=== PATIENT | female | born 1975 | race African-American/Black ===

== ENCOUNTER 2016-03-20 12:08 | Emergency (ER) | payer BC, OTHER ==
[2016-03-20 12:51] VITALS: BP 132/84; PULSE 65; TEMP 98.3; BMI 30.9
[2016-03-20] MEDS ORDERED: FAMOTIDINE 20 MG/50 ML IVPB 50 ML IVPB ONE ×2 (13:15→13:46)
[2016-03-20] MEDS ORDERED: SODIUM CHLORIDE 1,000 ML IV STA (13:15)
[2016-03-20] MEDS ORDERED: ACETAMINOPHEN 325 MG TABLET (FP) PO ONE (13:15)
[2016-03-20] MEDS ORDERED: MAG HYDROX/AL HYDROX/SIMETH 30 ML UNIT-DOSE CUP PO ONE (13:15)
[2016-03-20] MEDS ORDERED: ONDANSETRON 4 MG/2 ML VIAL IVPB ONE (13:15)
--- NOTE | 2016-03-20 13:21 | PDOC ---
History of Present Illness - General Chief Complaint: Pain, Acute Stated Complaint: LOWER ABDOMINAL PAIN Time Seen by Provider: 03/20/16 12:45 History Source: Patient Exam Limitations: No Limitations - History of Present Illness Initial Comments: 03/20/16 13:18 40-year-old female with no past medical history presents to the emergency department with right-sided tension headache, diarrhea, vomiting and left upper quadrant pain since yesterday night. Patient denies recent traveling or sick contacts. Reports some chills but denies fevers. Today, had 3 episodes of diarrhea multiple episodes of vomiting. Reports decreased appetite. Denies dysuria or lower abdominal pain (despite what was written in triage). Past History - Past Medical History Allergies/Adverse Reactions: Allergies Allergy/AdvReac Type Severity Reaction Status Date / Time No Known Allergies Allergy Verified 12/16/14 14:57 Home Medications: Ambulatory Orders Ibuprofen [Motrin -] 600 mg PO TID PRN #21 tablet 12/16/14 Acetaminophen [Tylenol .Regular Strength -] 650 mg PO Q6H PRN #0 tablet Cyanocobalamin [Vitamin B12 -] 100 mcg PO DAILY tablet 09/13/15 Levofloxacin [Levaquin -] 500 mg PO DAILY #10 tablet 09/13/15 Oxycodone HCl/Acetaminophen [Percocet 5-325 mg Tablet] 1 tab PO Q6H PRN #20 tablet MDD 3 tbs 09/13/15 Polyethylene Glycol 3350 [Miralax 119 gm Btl -] 17 gm PO DAILY PRN #0 bottle Acetaminophen [Tylenol] 650 mg PO Q4H PRN #20 tablet 03/20/16 Famotidine [Pepcid] 20 mg PO BID PRN #14 tablet 03/20/16 Mag Hydrox/Al Hydrox/Simeth [Mylanta Suspension -] 30 ml PO Q6H PRN #1 bottle Ondansetron HCl [Zofran] 4 mg PO Q6H PRN #15 tablet 03/20/16 - Immunization History Immunization Up to Date: Yes - Psycho/Social/Smoking Cessation Hx Anxiety: No Suicidal Ideation: No Smoking Status: No Smoking History: Never smoked Have you smoked in the past 12 months: No Number of Cigarettes Smoked Daily: 0 Hx Alcohol Use: Yes (OCCAISIONAL) Drug/Substance Use Hx: No Substance Use Type: None Review of Systems - Review of Systems Able to Perform ROS?: Yes Comments:: 03/20/16 13:19 GENERAL/CONSTITUTIONAL: No fever, weakness. HEAD, EYES, EARS, NOSE AND THROAT: No change in vision. No ear pain or discharge. No sore throat. CARDIOVASCULAR: No chest pain or shortness of breath. RESPIRATORY: No cough, wheezing, or hemoptysis. GASTROINTESTINAL: Positive abdominal pain, nausea, vomiting, diarrhea, or decreased PO intolerance. GENITOURINARY: No dysuria, frequency, or change in urination. MUSCULOSKELETAL: No joint or muscle swelling or pain. No neck or back pain. SKIN: No rash NEUROLOGIC: No headache, vertigo, loss of consciousness, or change in strength/ sensation. ENDOCRINE: No increased thirst. No abnormal weight change. HEMATOLOGIC/LYMPHATIC: No anemia, easy bleeding, or history of blood clots. ALLERGIC/IMMUNOLOGIC: No hives or skin allergy. *Physical Exam - Vital Signs Last Vital Signs Temp Pulse Resp BP Pulse Ox 98.3 F 65 16 132/84 100 03/20/16 12:43 03/20/16 12:43 03/20/16 12:43 03/20/16 12:43 03/20/16 12:43 - Physical Exam Comments: 03/20/16 13:19 GENERAL: Awake, alert, and fully oriented, in no acute distress. Dry mucous membranes HEAD: No signs of trauma EYES: PERRLA, EOMI, sclera anicteric, conjunctiva clear ENT: Auricles normal inspection, hearing grossly normal, nares patent, oropharynx clear without exudates. NECK: Normal ROM, supple, no lymphadenopathy, JVD, or masses LUNGS: Breath sounds equal, clear to auscultation bilaterally. No wheezes, and no crackles HEART: Regular rate and rhythm, normal S1 and S2, no murmurs, rubs or gallops ABDOMEN: TTP LUQ. De [place] negative. Soft, normoactive bowel sounds. No guarding , no rebound. No masses EXTREMITIES: Normal range of motion, no edema. No clubbing or cyanosis. No cords, erythema, or tenderness NEUROLOGICAL: Cranial nerves II through XII grossly intact. Normal speech, normal gait SKIN: Warm, Dry, normal turgor, no rashes or lesions noted. ED Treatment Course - LABORATORY CBC & Chemistry Diagram: 03/20/16 13:47 03/20/16 13:47 Medical Decision Making - Medical Decision Making 03/20/16 13:20 A portion of this note was documented by scribe services under my direction. I have reviewed the details of the note, within reason, and agree with the documentation with the following case summary and management plan written by me. Patient treated in the ED. Nursing notes are reviewed and incorporated into the medical decision-making. Vital signs reviewed. Peripheral IV access obtained by the nurse, laboratory studies are drawn and sent, reviewed and interpreted by myself. Vital Signs Temp Pulse Resp BP Pulse Ox 98.3 F 65 16 132/84 100 03/20/16 12:43 03/20/16 12:43 03/20/16 12:43 03/20/16 12:43 03/20/16 12:43 I suspect that the patient has gastroenteritis. We'll obtain labs, give IV fluids and treat symptoms and reassess. 03/20/16 16:38 CBC, BMP 03/20/16 13:47 03/20/16 13:47 CMP Sodium 136 mmol/L (136-145) 03/20/16 13:47 Potassium 3.8 mmol/L (3.5-5.1) 03/20/16 13:47 Chloride 103 mmol/L (98-107) 03/20/16 13:47 Carbon Dioxide 27 mmol/L (22-28) 03/20/16 13:47 Anion Gap 6 (8-16) L 03/20/16 13:47 BUN 11 mg/dl (7-18) D 03/20/16 13:47 Creatinine 0.5 mg/dl (0.6-1.3) L 03/20/16 13:47 Creat Clearance w eGFR > 60 (>60) 03/20/16 13:47 Random Glucose 106 mg/dl (74-106) 03/20/16 13:47 Calcium 8.9 mg/dl (8.4-10.2) 03/20/16 13:47 Total Bilirubin 0.7 mg/dl (0.2-1.0) 03/20/16 13:47 AST 30 U/L (10-42) D 03/20/16 13:47 ALT 14 U/L (10-40) D 03/20/16 13:47 Alkaline Phosphatase 47 U/L (32-92) 03/20/16 13:47 Total Protein 7.3 g/dl (6.4-8.3) 03/20/16 13:47 Albumin 4.4 g/dl (3.5-5.0) 03/20/16 13:47 Lipase 30 U/L (22-51) 03/20/16 13:47 Urine Test Results Urine Color Yellow 03/20/16 16:05 Urine Appearance Clear 03/20/16 16:05 Urine pH 6.5 (4.5-8) 03/20/16 16:05 Ur Specific [place] 1.025 (1.005-1.025) 03/20/16 16:05 Urine Protein Trace (NEGATIVE) 03/20/16 16:05 Urine Glucose (UA) Negative (NEGATIVE) 03/20/16 16:05 Urine Ketones Negative (NEGATIVE) 03/20/16 16:05 Urine Blood 2+ (NEGATIVE) H 03/20/16 16:05 Urine Nitrite Negative (NEGATIVE) 03/20/16 16:05 Urine Bilirubin Negative (NEGATIVE) 03/20/16 16:05 Ur Leukocyte Esterase Negative (NEGATIVE) 03/20/16 16:05 03/20/16 16:40 Pt feels remarkedly better Likely viral gastroenteritis. Will discharge with supportive care and encourage PO intake. I discussed the physical exam findings, ancillary test results and final diagnoses with the patient. I answered all of the patient's questions. The patient was satisfied with the care received and felt comfortable with the discharge plan and treatment plan. The patient will call their primary care physician within 24 hours to arrange follow-up and will return to the Emergency Department with any new, persistant or worsening symptoms. *DC/Admit/Observation/Transfer Diagnosis at time of Disposition: Gastroenteritis - Discharge Dispostion Disposition: HOME Condition at time of disposition: Good Admit: No - Prescriptions Prescriptions: Mag Hydrox/Al Hydrox/Simeth [Mylanta Suspension -] 30 ml PO Q6H PRN #1 bottle PRN Reason: Abdominal Pain Famotidine [Pepcid] 20 mg PO BID PRN #14 tablet PRN Reason: Abdominal Pain Acetaminophen [Tylenol] 650 mg PO Q4H PRN #20 tablet PRN Reason: Fever/Pain Ondansetron HCl [Zofran] 4 mg PO Q6H PRN #15 tablet PRN Reason: Nausea - Referrals Referrals: Cintia Matute [Primary Care Provider] - - Patient Instructions Printed Discharge Instructions: DI for Viral Gastroenteritis -- Adult Additional Instructions: Please drink plenty of fluids and rest. Take the medications as prescribed as needed for symptom control. It may take several days before the symptoms improve. Follow up with your primary care physician.
[2016-03-20] MEDS ORDERED: ONDANSETRON 4 MG/2 ML VIAL ONE (13:46)
[2016-03-20] MEDS ORDERED: MAG HYDROX/AL HYDROX/SIMETH 30 ML UNIT-DOSE CUP ONE (13:46)
[2016-03-20] MEDS ORDERED: ACETAMINOPHEN 325 MG TABLET (FP) ONE (13:46)
[2016-03-20 15:13] LABS: BASOPHIL 1.4 % (0-2.0); EOSINOPHIL 0.1 % (0-4.5); MCH 29.1 pg (25.7-33.7); MCHC 32.5 g/dl (32.0-36.0); MEAN CELL VOLUME 89.6 fl (80-96); MEAN PLT VOLUME 8.4 fl (7.5-11.1); NEUTROPHILS 88.9 % (42.8-82.8); PLATELET COUNT 249 K/MM3 (134-434); RDW 12.8 % (11.6-15.6); WHITE BLOOD COUNT 9.4 K/mm3 (4.0-10.0)
[2016-03-20 15:37] LABS: ALBUMIN 4.4 g/dl (3.5-5.0); ALK PHOS 47 U/L (32-92); ANION GAP 6 (8-16); BILIRUBIN,TOTAL 0.7 mg/dl (0.2-1.0); CALCIUM 8.9 mg/dl (8.4-10.2); CO2 27 mmol/L (22-28); CREATININE 0.5 mg/dl (0.6-1.3); GLUCOSE,RANDOM 106 mg/dl (74-106); SGOT/AST 30 U/L (10-42); SGPT/ALT 14 U/L (10-40); TOT PROT 7.3 g/dl (6.4-8.3)
[2016-03-20 16:19] LABS: PH,URINE 6.5 (4.5-8); URINE APPEARANCE Clear; URINE BILIRUBIN Negative (NEGATIVE); URINE GLUCOSE (UA) Negative (NEGATIVE); URINE KETONE Negative (NEGATIVE); URINE LEUK ESTERASE Negative (NEGATIVE); URINE NITRITE Negative (NEGATIVE); URINE PROTEIN Trace (NEGATIVE); URINE UROBILINOGEN 0.2 E.U/dl (0.2-1.0)
[2016-03-20 16:27] LABS: URINE BLOOD 2+ (NEGATIVE); URINE COLOR YELLOW
[2016-03-20 17:18] LABS: URINE BACTERIA RARE /hpf (NEGATIVE); URINE RBC 0-3 /hpf (0-3); URINE WBC NONE SEEN (3-5)
== END 2016-03-20 16:59 | disposition home or self-care (01) ==
LOC: FER 12:08
PROC: 3E033GC Introduction of Other Therapeutic Substance into Peripheral Vein, Percutaneous Approach (ICD-10-PCS; principal; 2016-03-20)
PROC: 3E0337Z Introduction of Electrolytic and Water Balance Substance into Peripheral Vein, Percutaneous Approach (ICD-10-PCS; 2016-03-20)
DX: K52.9 Noninfective gastroenteritis and colitis, unspecified (principal)
CPT/HCPCS: 36415; 80053; 81003; 81015; 83690; 84703; 85025; 87086; 99283-25

== ENCOUNTER 2016-03-31 11:10 | Emergency (ER) | payer BC, OTHER ==
[2016-03-31 11:39] VITALS: BP 121/54; PULSE 72; TEMP 98.1; BMI 32.5
[2016-03-31] MEDS ORDERED: AMOX TR/POT CLAV 500MG/125MG TABLETS (FP) PO ONE (13:17)
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
[2016-03-31] MEDS ORDERED: AMOX TR/POT CLAV 500MG/125MG TABLETS (FP) ONE (13:30)
[2016-03-31 15:47] LABS: HIV 1 & 2 AB NEGATIVE; HIV 1 AGp24 NEGATIVE
== END 2016-03-31 13:36 | disposition home or self-care (01) ==
LOC: FER 11:10
DX: S61.551A Open bite of right wrist, initial encounter (principal); S05.12XA Contusion of eyeball and orbital tissues, left eye, initial encounter; Y04.1XXA Assault by human bite, initial encounter; Y93.89 Activity, other specified; Y92.159 Unspecified place in reform school as the place of occurrence of the external cause; Y99.0 Civilian activity done for income or pay
CPT/HCPCS: 36415; 87389; 99282-25

== ENCOUNTER 2016-09-28 23:43 | Emergency (ER) | payer OTHER ==
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
[2016-09-28 23:58] VITALS: BP 118/68; PULSE 93; TEMP 98.5; BMI 31.6
== END 2016-09-29 01:55 | disposition home or self-care (01) ==
LOC: FER 23:43
DX: T14.8 Other injury of unspecified body region (principal); Y04.2XXA Assault by strike against or bumped into by another person, initial encounter; Y93.89 Activity, other specified; Y92.159 Unspecified place in reform school as the place of occurrence of the external cause; Y99.0 Civilian activity done for income or pay
CPT/HCPCS: 73610-TC-RT; 73630-TC-RT; 84703; 99282-25

== ENCOUNTER 2018-07-08 15:22 | Emergency (ER) | payer BC ==
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
[2018-07-08 17:31] VITALS: BP 121/80; PULSE 70; TEMP 98.3
== END 2018-07-08 17:10 | disposition home or self-care (01) ==
LOC: FER 15:22
DX: T22.412A Corrosion of unspecified degree of left forearm, initial encounter (principal); T65.891A Toxic effect of other specified substances, accidental (unintentional), initial encounter; Y92.002 Bathroom of unspecified non-institutional (private) residence as the place of occurrence of the external cause
CPT/HCPCS: 99283-25

== ENCOUNTER 2020-03-12 08:56 | Emergency (ER) | payer BC ==
[2020-03-12] MEDS ORDERED: SODIUM CHLORIDE 1,000 ML IV STA (09:03)
[2020-03-12] MEDS ORDERED: ACETAMINOPHEN 1000 MG/100 ML VIAL (NON FORMULARY) IVPB ONE (09:03)
[2020-03-12] MEDS ORDERED: ONDANSETRON 4 MG/2 ML VIAL IVPB ONE (09:03)
[2020-03-12] MEDS ORDERED: PANTOPRAZOLE SODIUM 40 MG in SODIUM CHLORIDE 100 ML IVPB ONE (09:11)
[2020-03-12 09:12] VITALS: BP 141/88; PULSE 67; TEMP 97.9; BMI 31.4
[2020-03-12] MEDS ORDERED: ACETAMINOPHEN INJECTION 100 ML IVPB ONE (09:25)
[2020-03-12] MEDS ORDERED: ONDANSETRON 4 MG/2 ML VIAL ONE (09:25)
[2020-03-12] MEDS ORDERED: PANTOPRAZOLE SODIUM 40 MG VIAL ONE (09:25)
[2020-03-12 09:49] LABS: HCG,QUALITATIVE URINE Negative
[2020-03-12 09:49] LABS: RDW 13.3 % (11.6-15.6); WHITE BLOOD COUNT 8.6 K/mm3 (4.0-10.8)
[2020-03-12 09:53] LABS: BASO % 3.1 % (0-2.0); EOS % 0.6 % (0-4.5); MCH 31.2 pg (25.7-33.7); MCHC 32.5 g/dl (32.0-36.0); MEAN CELL VOLUME 95.9 fl (80-96); MEAN PLT VOLUME 8.4 fl (7.5-11.1); MONO % 7.2 % (3.8-10.2); NEUT % 80.1 % (42.8-82.8); PLATELET COUNT 307 K/MM3 (134-434); RBC 3.85 M/mm3 (3.60-5.2)
[2020-03-12 09:57] LABS: EPITHELIAL CELLS MODERATE /hpf
[2020-03-12 09:57] LABS: ALBUMIN 4.1 g/dl (3.4-5.0); BILIRUBIN,TOTAL 0.3 mg/dl (0.2-1); CALCIUM 9.1 mg/dl (8.5-10); CREATININE 0.6 mg/dl (0.55-1.3); POTASSIUM 3.6 mmol/L (3.5-5.1)
== END 2020-03-12 11:49 | disposition home or self-care (01) ==
LOC: FER 08:56
PROC: 3E0333Z Introduction of Anti-inflammatory into Peripheral Vein, Percutaneous Approach (ICD-10-PCS; principal; 2020-03-12)
PROC: 3E033GC Introduction of Other Therapeutic Substance into Peripheral Vein, Percutaneous Approach (ICD-10-PCS; 2020-03-12)
PROC: 3E033GC Introduction of Other Therapeutic Substance into Peripheral Vein, Percutaneous Approach (ICD-10-PCS; 2020-03-12)
PROC: 3E0337Z Introduction of Electrolytic and Water Balance Substance into Peripheral Vein, Percutaneous Approach (ICD-10-PCS; 2020-03-12)
DX: K52.9 Noninfective gastroenteritis and colitis, unspecified (principal); R10.9 Unspecified abdominal pain; R11.2 Nausea with vomiting, unspecified
CPT/HCPCS: 36415; 74177-TC; 80053; 81003; 81015; 83690; 84703; 85025; 87086; 99285-25; J0131

== ENCOUNTER 2020-07-31 09:51 | Emergency (ER) | payer BC ==
[2020-07-31 10:15] VITALS: BP 116/74; PULSE 71; TEMP 99.3; BMI 30.9
== END 2020-07-31 10:15 | disposition home or self-care (01) ==
LOC: FER 09:51
DX: R60.0 Localized edema (principal)
CPT/HCPCS: 99281-25

== ENCOUNTER 2020-12-22 10:52 | Emergency (ER) | payer BC ==
[2020-12-22 11:11] VITALS: BP 115/81; PULSE 78; TEMP 99.9; BMI 30.9
[2020-12-22] MEDS ORDERED: IBUPROFEN 600 MG TABLET (FP) PO ONE ×2 (11:27→11:39)
[2020-12-22] MEDS ORDERED: SULFAMETHOXAZOLE/TRIMETHOPRIM 800MG/160MG D.S. TABLET PO ONE (11:47)
[2020-12-22] MEDS ORDERED: SULFAMETHOXAZOLE/TRIMETHOPRIM 800MG/160MG D.S. TABLET ONE (11:54)
== END 2020-12-22 12:00 | disposition home or self-care (01) ==
LOC: FER 10:52
PROC: 0H9KXZZ Drainage of Right Lower Leg Skin, External Approach (ICD-10-PCS; principal; 2020-12-22)
DX: L02.415 Cutaneous abscess of right lower limb (principal)
CPT/HCPCS: 99283-25

== ENCOUNTER 2021-06-13 15:30 | Emergency (ER) | payer BC ==
[2021-06-13 15:50] VITALS: BP 121/93; PULSE 71; TEMP 97.8; BMI 30.9
[2021-06-13] MEDS ORDERED: LIDOCAINE HCL 2% JELLY (5 ML/TUBE) ONE (16:22)
[2021-06-13] MEDS ORDERED: ACETAMINOPHEN 325 MG TABLET (FP) ONE (16:23)
[2021-06-13] MEDS ORDERED: ACETAMINOPHEN 325 MG TABLET (FP) PO ONE (16:27)
[2021-06-13] MEDS ORDERED: LIDOCAINE HCL 2% JELLY (5 ML/TUBE) TP ONE (16:27)
== END 2021-06-13 16:30 | disposition home or self-care (01) ==
LOC: FER 15:30
DX: R22.31 Localized swelling, mass and lump, right upper limb (principal)
CPT/HCPCS: 99283-25

== ENCOUNTER 2021-11-23 21:02 | Inpatient (IN) | payer BC ==
[2021-11-23 21:08] VITALS: BMI 30.7
[2021-11-23] MEDS ORDERED: ACETAMINOPHEN 1000 MG/100 ML BAG IVPB ONE (21:57)
[2021-11-23] MEDS ORDERED: SODIUM CHLORIDE 1,000 ML IV STA (21:57)
[2021-11-23] MEDS ORDERED: ACETAMINOPHEN INJECTION 100 ML IVPB ONE (22:05)
[2021-11-23 23:15] LABS: VENOUS BASE EXCESS 0.3 mmol/L (-2-2); VENOUS O2 SATURATION 91.8 % (70-80); VENOUS PCO2 37.3 mmHg (38-52); VENOUS PH 7.433 (7.310-7.410)
[2021-11-23 23:17] LABS: BASO % 0.4 % (0-2.0); EOS % 0.3 % (0-4.5); HEMATOCRIT 35.4 % (32.4-45.2); HEMOGLOBIN 11.9 GM/dL (10.7-15.3); LYMPH % 16.2 % (8-40); MCH 30.8 pg (25.7-33.7); MCHC 33.5 g/dl (32.0-36.0); MEAN CELL VOLUME 91.9 fl (80-96); MEAN PLT VOLUME 8.4 fl (7.5-11.1); NEUT % 69.1 % (42.8-82.8); PLATELET COUNT 254 10^3/uL (134-434); RBC 3.86 M/mm3 (3.60-5.2); RDW 14.1 % (11.6-15.6); WHITE BLOOD COUNT 6.2 K/mm3 (4.0-10.0)
[2021-11-23 23:25] LABS: CHLORIDE 104 mmol/L (98-107); SODIUM 138 mmol/L (136-145)
[2021-11-23 23:27] LABS: CALCIUM 8.6 mg/dL (8.5-10.1)
[2021-11-23 23:28] LABS: ALBUMIN 3.7 g/dl (3.4-5.0); ANION GAP 10 MMOL/L (8-16); BLOOD UREA NITROGEN 7.9 mg/dL (7-18); CO2 24 mmol/L (21-32); GLUCOSE,RANDOM 99 mg/dL (74-106)
[2021-11-23 23:31] LABS: CREATININE 0.6 mg/dL (0.55-1.3); SGOT/AST 13 U/L (15-37); SGPT/ALT 14 U/L (13-61)
[2021-11-23 23:33] LABS: BILIRUBIN,TOTAL 0.4 mg/dL (0.2-1); TOT PROT 7.4 g/dl (6.4-8.2)
[2021-11-23 23:34] LABS: ALK PHOS 55 U/L (45-117)
[2021-11-24 00:32] LABS: EPI CELLS 11 /uL (0-25.1); HYALINE CASTS 3 /uL (0-3.1); URINE APPEARANCE CLEAR; URINE BACTERIA 1335 /uL (0-1359); URINE BILIRUBIN NEGATIVE (NEGATIVE); URINE COLOR YELLOW; URINE GLUCOSE (UA) NEGATIVE (NEGATIVE); URINE KETONE 1+ (NEGATIVE); URINE LEUK ESTERASE TRACE (NEGATIVE); URINE NITRITE NEGATIVE (NEGATIVE); URINE PROTEIN TRACE (NEGATIVE); URINE RBC 114 /uL (0-23.9); URINE UROBILINOGEN 0.2 mg/dL (0.2-1.0); URINE WBC 43 /uL (0-25.8)
[2021-11-24] MEDS ORDERED: morphine CARPU-JECT 2 MG/1 ML DISP.SYRIN IVPUSH ONE (02:57)
[2021-11-24] MEDS ORDERED: CEFTRIAXONE 1,000 MG in DEXTROSE 5%-WATER - 50 ML IVPB ONE (03:09)
[2021-11-24] MEDS ORDERED: CEFTRIAXONE 1 GM/50 ML BAG ONE (03:16)
[2021-11-24] MEDS: ACETAMINOPHEN 325 MG TABLET (FP) PO PRN ×3 (09:22→21:18)
[2021-11-24] MEDS: CEFTRIAXONE 1 GM in DEXTROSE 5%-WATER - 50 ML IVPB SCH (09:30)
[2021-11-24 16:50] LABS: HIV INTERPRETATION NEGATIVE (NEGATIVE)
[2021-11-24] MEDS: HEPARIN NA (PORCINE) 5,000 UNITS/ML 1ML VIAL SQ SCH (21:18)
[2021-11-24] MEDS: MELATONIN 5 MG TABLETS PO PRN (22:43)
[2021-11-25] MEDS: ACETAMINOPHEN 325 MG TABLET (FP) PO PRN (02:18)
[2021-11-25 05:29] VITALS: RESP 18
[2021-11-25] MEDS: HEPARIN NA (PORCINE) 5,000 UNITS/ML 1ML VIAL SQ SCH ×2 (09:34→21:04)
[2021-11-25] MEDS: CEFTRIAXONE 1 GM in DEXTROSE 5%-WATER - 50 ML IVPB SCH (09:35)
[2021-11-25] MEDS: ONDANSETRON 4 MG/2 ML VIAL IVPUSH PRN (10:00)
[2021-11-25] MEDS: ACETAMINOPHEN 1000 MG/100 ML BAG IVPB PRN ×3 (10:00→19:52)
[2021-11-25] MEDS ORDERED: SODIUM CHLORIDE 1,000 ML IV SCH ×2 (11:30)
[2021-11-25 12:07] LABS: BASO % 0.5 % (0-2.0); EOS % 0.1 % (0-4.5); HEMATOCRIT 35.2 % (32.4-45.2); HEMOGLOBIN 12.1 GM/dL (10.7-15.3); LYMPH % 11.9 % (8-40); MCHC 34.3 g/dl (32.0-36.0); MEAN CELL VOLUME 90.6 fl (80-96); MEAN PLT VOLUME 7.7 fl (7.5-11.1); MONO % 10.9 % (3.8-10.2); NEUT % 76.6 % (42.8-82.8); PLATELET COUNT 250 10^3/uL (134-434); RBC 3.89 M/mm3 (3.60-5.2); WHITE BLOOD COUNT 7.8 K/mm3 (4.0-10.0)
[2021-11-25 12:24] LABS: CALCIUM 8.9 mg/dL (8.5-10.1)
[2021-11-25 12:25] LABS: ALBUMIN 3.3 g/dl (3.4-5.0); BLOOD UREA NITROGEN 5.8 mg/dL (7-18)
[2021-11-25 12:28] LABS: CREATININE 0.6 mg/dL (0.55-1.3); PHOSPHOROUS 2.8 mg/dL (2.5-4.9)
[2021-11-25 12:29] LABS: TOT PROT 7.1 g/dl (6.4-8.2)
[2021-11-25 12:30] LABS: BILIRUBIN,TOTAL 0.5 mg/dL (0.2-1)
[2021-11-25] MEDS ORDERED: POTASSIUM CHLORIDE ORAL LIQUID 20 MEQ/15 ML PO ONE (12:53)
[2021-11-25 13:53] LABS: ANISOCYTOSIS 1+; MACROCYTOSIS 0; PLATELET ESTIMATE NORMAL
[2021-11-25] MEDS: PIPERACILLIN/TAZOB 4.5 GM 4.5 GM in DEXTROSE 5%-WATER 100 ML IVPB SCH (17:54)
[2021-11-25] MEDS ORDERED: IBUPROFEN 400 MG TABLET (FP) PO ONE (23:54)
[2021-11-25] MEDS ORDERED: NALOXONE HCL 0.4 MG/ML VIAL IVPUSH PRN (23:54)
[2021-11-26] MEDS: MELATONIN 5 MG TABLETS PO PRN (00:14)
[2021-11-26] MEDS: ONDANSETRON 4 MG/2 ML VIAL IVPUSH PRN ×2 (00:14→06:46)
[2021-11-26] MEDS: PIPERACILLIN/TAZOB 4.5 GM 4.5 GM in DEXTROSE 5%-WATER 100 ML IVPB SCH ×3 (01:13→18:56)
[2021-11-26] MEDS: ACETAMINOPHEN 1000 MG/100 ML BAG IVPB PRN ×3 (06:44→22:21)
[2021-11-26] MEDS ORDERED: SODIUM CHLORIDE 1,000 ML IV SCH (09:15)
[2021-11-26] MEDS ORDERED: SCOPOLAMINE HYDROBROMIDE 1 PATCH PATCH.TD72 TD SCH (09:30)
[2021-11-26] MEDS ORDERED: ACETAMINOPHEN/CAFFEINE/BUTALBITAL 1 TAB PO PRN ×2 (09:36→14:17)
[2021-11-26] MEDS: ENOXAPARIN NA (PORCINE) 40 MG/0.4 ML DISP.SYRIN SQ SCH (10:16)
[2021-11-26 12:51] LABS: HEMATOCRIT 34.9 % (32.4-45.2); HEMOGLOBIN 12.1 GM/dL (10.7-15.3); MCH 31.2 pg (25.7-33.7); MCHC 34.6 g/dl (32.0-36.0); MEAN CELL VOLUME 90.2 fl (80-96); MEAN PLT VOLUME 8.1 fl (7.5-11.1); PLATELET COUNT 288 10^3/uL (134-434); RBC 3.87 M/mm3 (3.60-5.2); RDW 14.2 % (11.6-15.6); WHITE BLOOD COUNT 7.5 K/mm3 (4.0-10.0)
[2021-11-26 13:04] LABS: ALBUMIN 3.1 g/dl (3.4-5.0); BLOOD UREA NITROGEN 6.9 mg/dL (7-18); CALCIUM 8.8 mg/dL (8.5-10.1); MAGNESIUM 2.1 mg/dL (1.8-2.4)
[2021-11-26 13:07] LABS: CREATININE 0.8 mg/dL (0.55-1.3); PHOSPHOROUS 2.8 mg/dL (2.5-4.9)
[2021-11-26 13:09] LABS: BILIRUBIN,TOTAL 0.6 mg/dL (0.2-1); TOT PROT 6.9 g/dl (6.4-8.2)
[2021-11-26 13:30] LABS: ANISOCYTOSIS 0; MACROCYTOSIS 0
[2021-11-26] MEDS ORDERED: TRIMETHOBENZAMIDE HCL 200MG/2ML INJ IM PRN (14:08)
[2021-11-26] MEDS: KCL 10 MEQ IVPB 10 MEQ/100 ML INFUS.BAG IVPB SCH ×2 (14:38→16:06)
[2021-11-26] MEDS ORDERED: SODIUM CHLORIDE FOR INHALATION 3 ML VIAL.NEB IH PRN (15:23)
[2021-11-26] MEDS ORDERED: guaiFENesin 200 MG/10 ML 10 ML UNIT-DOSE CUPS PO PRN (15:24)
[2021-11-26] MEDS ORDERED: SODIUM CHLORIDE 1,000 ML IV STA (15:25)
[2021-11-26] MEDS: SODIUM CHLORIDE 1,000 ML IV SCH (16:12)
[2021-11-26] MEDS: FAMOTIDINE 20 MG/50 ML IVPB 20 MG/50 ML MG IVPB SCH (22:22)
[2021-11-26] MEDS: guaiFENesin/CODEINE 10 ML UNIT-DOSE CUPS PO SCH (22:23)
[2021-11-27] MEDS: PIPERACILLIN/TAZOB 4.5 GM 4.5 GM in DEXTROSE 5%-WATER 100 ML IVPB SCH ×3 (02:21→19:53)
[2021-11-27] MEDS: ACETAMINOPHEN 1000 MG/100 ML BAG IVPB PRN (06:31)
[2021-11-27 09:55] LABS: BASO % 0.5 % (0-2.0); EOS % 0.2 % (0-4.5); HEMATOCRIT 30.4 % (32.4-45.2); HEMOGLOBIN 10.5 GM/dL (10.7-15.3); LYMPH % 21.8 % (8-40); MCH 31.1 pg (25.7-33.7); MCHC 34.6 g/dl (32.0-36.0); MEAN CELL VOLUME 89.9 fl (80-96); MEAN PLT VOLUME 7.8 fl (7.5-11.1); MONO % 13.9 % (3.8-10.2); NEUT % 63.6 % (42.8-82.8); PLATELET COUNT 254 10^3/uL (134-434); RBC 3.38 M/mm3 (3.60-5.2); RDW 14.6 % (11.6-15.6)
[2021-11-27 09:56] LABS: BLOOD UREA NITROGEN 4.4 mg/dL (7-18); CALCIUM 7.9 mg/dL (8.5-10.1)
[2021-11-27 09:59] LABS: CREATININE 0.8 mg/dL (0.55-1.3); MAGNESIUM 1.7 mg/dL (1.8-2.4)
[2021-11-27] MEDS ORDERED: AZITHROMYCIN IVPB 500 MG/250 ML BAG IVPB SCH (10:00)
[2021-11-27 10:01] LABS: BILIRUBIN,TOTAL 0.4 mg/dL (0.2-1); TOT PROT 5.8 g/dl (6.4-8.2)
[2021-11-27 10:10] LABS: ALBUMIN 2.4 g/dl (3.4-5.0)
[2021-11-27] MEDS: FAMOTIDINE 20 MG/50 ML IVPB 20 MG/50 ML MG IVPB SCH ×2 (10:24→21:36)
[2021-11-27] MEDS: LACTOBACILLUS ACIDOPHILUS 1 TABLET PO SCH (10:25)
[2021-11-27] MEDS: ACETAMINOPHEN 1000 MG/100 ML BAG IVPB SCH ×3 (10:25→21:35)
[2021-11-27] MEDS: ENOXAPARIN NA (PORCINE) 40 MG/0.4 ML DISP.SYRIN SQ SCH (10:26)
[2021-11-27] MEDS ORDERED: MAGNESIUM SULF 50% (8.12 MEQ/2 ML-1 GM VIAL) IVPB ONE (10:36)
[2021-11-27] MEDS: KCL 10 MEQ IVPB 10 MEQ/100 ML INFUS.BAG IVPB SCH ×2 (12:18→15:38)
[2021-11-27] MEDS: SODIUM CHLORIDE 1,000 ML IV SCH (15:34)
[2021-11-27] MEDS ORDERED: KCL 10 MEQ IVPB 10 MEQ/100 ML INFUS.BAG IVPB SCH (15:45)
[2021-11-27] MEDS ORDERED: POTASSIUM CHLORIDE TABS 20 MEQ TABLET.ER (FP) PO ONE (20:00)
[2021-11-27] MEDS: guaiFENesin/CODEINE 10 ML UNIT-DOSE CUPS PO SCH (21:48)
[2021-11-28] MEDS: ACETAMINOPHEN 1000 MG/100 ML BAG IVPB SCH (03:13)
[2021-11-28] MEDS: PIPERACILLIN/TAZOB 4.5 GM 4.5 GM in DEXTROSE 5%-WATER 100 ML IVPB SCH ×2 (03:13→09:18)
[2021-11-28 08:11] VITALS: BP 130/75; PULSE 60; TEMP 99.2
[2021-11-28 09:11] LABS: HEMATOCRIT 28.8 % (32.4-45.2); HEMOGLOBIN 9.8 GM/dL (10.7-15.3); MCH 30.4 pg (25.7-33.7); MEAN CELL VOLUME 89.5 fl (80-96); PLATELET COUNT 307 10^3/uL (134-434); RBC 3.22 M/mm3 (3.60-5.2); RDW 14.3 % (11.6-15.6); WHITE BLOOD COUNT 4.4 K/mm3 (4.0-10.0)
[2021-11-28] MEDS: LACTOBACILLUS ACIDOPHILUS 1 TABLET PO SCH (09:18)
[2021-11-28] MEDS: FAMOTIDINE 20 MG/50 ML IVPB 20 MG/50 ML MG IVPB SCH (09:18)
[2021-11-28] MEDS: ENOXAPARIN NA (PORCINE) 40 MG/0.4 ML DISP.SYRIN SQ SCH (09:22)
[2021-11-28 09:30] LABS: BLOOD UREA NITROGEN 4.7 mg/dL (7-18); CALCIUM 8.1 mg/dL (8.5-10.1); MAGNESIUM 2.2 mg/dL (1.8-2.4)
[2021-11-28 09:31] LABS: ALBUMIN 2.4 g/dl (3.4-5.0)
[2021-11-28 09:33] LABS: CREATININE 0.6 mg/dL (0.55-1.3)
[2021-11-28 09:35] LABS: BILIRUBIN,TOTAL 0.4 mg/dL (0.2-1); TOT PROT 5.7 g/dl (6.4-8.2)
[2021-11-28 10:45] LABS: ANISOCYTOSIS 1+; MACROCYTOSIS 1+; OVALOCYTE 2+; SICKELED CELLS 1+
== END 2021-11-28 15:20 | disposition home or self-care (01) | DRG 871 ==
LOC: JER 21:02 → JERBED 11-24 03:37 → J8W 11-24 07:32
PROVIDERS: ADMIT Internal Medicine; ATTEND Nurse Practitioner Acute Care
DX: A41.9 Sepsis, unspecified organism (principal); A48.1 Legionnaires' disease; N39.0 Urinary tract infection, site not specified; L73.2 Hidradenitis suppurativa; B96.20 Unspecified Escherichia coli [E. coli] as the cause of diseases classified elsewhere; R91.8 Other nonspecific abnormal finding of lung field; M54.9 Dorsalgia, unspecified
CPT/HCPCS: 36415; 71045-TC-FY; 71250-TC; 74177-TC; 76830-TC; 80053; 81003; 82553; 82803; 83605; 83735; 84100; 84703; 85025; 86140; 86480; 87040; 87086; 87186; 87389; 87899; 93005; 93010; 99285-25; C9803-CS; J1644; Q9967; U0003; U0005

== ENCOUNTER 2022-03-15 00:25 | Emergency (ER) | payer BC ==
[2022-03-15 00:34] VITALS: BMI 31.7
[2022-03-15] MEDS ORDERED: ACETAMINOPHEN 1000 MG/100 ML BAG IVPB ONE (01:07)
[2022-03-15] MEDS ORDERED: morphine CARPU-JECT 4 MG/1 ML DISP.SYRIN IVPUSH ONE (01:08)
[2022-03-15] MEDS ORDERED: morphine CARPU-JECT 2 MG/1 ML DISP.SYRIN IM ONE (01:27)
[2022-03-15] MEDS ORDERED: morphine SULFATE 4 MG/ML VIAL ONE (01:28)
[2022-03-15] MEDS ORDERED: ACETAMINOPHEN INJECTION 100 ML IVPB ONE (01:37)
[2022-03-15] MEDS ORDERED: SODIUM CHLORIDE 0.9% 500 ML INFUS.BAG IV ONE (01:38)
[2022-03-15 03:17] LABS: BASO % 0.4 % (0-2.0); EOS % 0.8 % (0-4.5); HEMATOCRIT 39.2 % (32.4-45.2); HEMOGLOBIN 12.5 GM/dL (10.7-15.3); LYMPH % 11.6 % (8-40); MCH 29.5 pg (25.7-33.7); MCHC 31.9 g/dl (32.0-36.0); MEAN CELL VOLUME 92.6 fl (80-96); MEAN PLT VOLUME 8.5 fl (7.5-11.1); NEUT % 82.2 % (42.8-82.8); PLATELET COUNT 277 10^3/uL (134-434); RBC 4.24 M/mm3 (3.60-5.2); WHITE BLOOD COUNT 9.9 K/mm3 (4.0-10.0)
[2022-03-15 03:40] LABS: ALBUMIN 3.9 g/dl (3.4-5.0); BLOOD UREA NITROGEN 12.9 mg/dL (7-18); CALCIUM 9.1 mg/dL (8.5-10.1)
[2022-03-15 03:43] LABS: CREATININE 0.7 mg/dL (0.55-1.3)
[2022-03-15 03:45] LABS: TOT PROT 7.2 g/dl (6.4-8.2)
[2022-03-15 04:05] LABS: BILIRUBIN,TOTAL 0.4 mg/dL (0.2-1)
[2022-03-15 06:58] LABS: EPI CELLS 11 /uL (0-25.1); HYALINE CASTS 1 /uL (0-3.1); PH,URINE 6.5 (5.0-8.0); URINE APPEARANCE CLEAR; URINE BACTERIA 24 /uL (0-1359); URINE BILIRUBIN NEGATIVE (NEGATIVE); URINE COLOR YELLOW; URINE GLUCOSE (UA) NEGATIVE (NEGATIVE); URINE KETONE TRACE (NEGATIVE); URINE LEUK ESTERASE NEGATIVE (NEGATIVE); URINE NITRITE NEGATIVE (NEGATIVE); URINE PROTEIN NEGATIVE (NEGATIVE); URINE RBC 25 /uL (0-23.9); URINE UROBILINOGEN 0.2 mg/dL (0.2-1.0); URINE WBC 10 /uL (0-25.8)
[2022-03-15 07:05] VITALS: BP 100/66; PULSE 74; RESP 18; TEMP 98.1
== END 2022-03-15 09:50 | disposition home or self-care (01) ==
LOC: JER 00:25
PROC: 3E0333Z Introduction of Anti-inflammatory into Peripheral Vein, Percutaneous Approach (ICD-10-PCS; principal; 2022-03-15)
PROC: 3E033NZ Introduction of Analgesics, Hypnotics, Sedatives into Peripheral Vein, Percutaneous Approach (ICD-10-PCS; 2022-03-15)
DX: R10.84 Generalized abdominal pain (principal)
CPT/HCPCS: 36415; 74177-TC; 76830-TC; 80053; 81003; 84702; 85025; 86850; 86900; 86901; 87086; 99285-25; Q9967

== ENCOUNTER 2022-07-25 13:23 | Emergency (ER) | payer BC, OTHER ==
[2022-07-25 13:56] VITALS: BP 144/91; PULSE 75; RESP 18; TEMP 99.4; BMI 30.9
[2022-07-25] MEDS ORDERED: ACETAMINOPHEN 500 MG TABLET (FP) PO ONE (14:35)
[2022-07-25] MEDS ORDERED: LIDOCAINE 5% TOPICAL PATCH TP ONE (14:35)
[2022-07-25] MEDS ORDERED: LIDOCAINE 5% TOPICAL PATCH ONE (15:10)
[2022-07-25] MEDS ORDERED: ACETAMINOPHEN 500 MG TABLET (FP) ONE (15:10)
[2022-07-25] MEDS ORDERED: LIDOCAINE PATCH REMOVAL MC SCH (22:00)
== END 2022-07-25 15:21 | disposition home or self-care (01) ==
LOC: FER 13:23
PROC: 2W3KX1Z Immobilization of Left Finger using Splint (ICD-10-PCS; principal; 2022-07-25)
DX: M25.552 Pain in left hip (principal); M54.50 Low back pain, unspecified; M79.645 Pain in left finger(s); S62.603A Fracture of unspecified phalanx of left middle finger, initial encounter for closed fracture; W18.30XA Fall on same level, unspecified, initial encounter; Y93.B2 Activity, push-ups, pull-ups, sit-ups; Y92.118 Other place in children's home and orphanage as the place of occurrence of the external cause; Y99.0 Civilian activity done for income or pay
CPT/HCPCS: 72100-TC-FY; 73130-TC-LT-FY; 73502-TC-LT-FY; 99284-25

== ENCOUNTER 2022-08-21 05:31 | Day surgery (SDC) | payer BC ==
[2022-08-17 12:02] VITALS: BMI 32.5
[2022-08-21] MEDS ORDERED: ceFAZolin SODIUM 1 GM VIAL IVPB ONE ×2 (12:17→12:58)
[2022-08-21] MEDS ORDERED: ceFAZolin SODIUM 1 GM VIAL ONE (12:42)
[2022-08-21] MEDS ORDERED: ONDANSETRON 4 MG/2 ML VIAL ONE (12:42)
[2022-08-21] MEDS ORDERED: DEXAMETHASONE SOD PHOSPHATE 4 MG/1 ML VIAL ONE (12:42)
[2022-08-21] MEDS ORDERED: LIDOCAINE HCL/PF 2% SDV 5ML VIAL ONE (12:42)
[2022-08-21] MEDS ORDERED: PROPOFOL 20 ML ONE (12:42)
[2022-08-21] MEDS ORDERED: KETOROLAC TROMETHAMINE 30 MG/1 ML VIAL ONE (12:42)
[2022-08-21] MEDS ORDERED: SEVOFLURANE 250 ML BTL ONE (12:44)
[2022-08-21] MEDS ORDERED: PROMETHAZINE HCL 25 MG/1 ML VIAL IVPB PRN (13:31)
[2022-08-21] MEDS ORDERED: oxyCODONE HCL 5 MG TABLET PO PRN ×2 (13:31)
[2022-08-21] MEDS ORDERED: ACETAMINOPHEN 1000 MG/100 ML BAG IVPB ONE ×2 (13:31→13:33)
[2022-08-21] MEDS ORDERED: ONDANSETRON 4 MG/2 ML VIAL IVPUSH PRN (13:31)
[2022-08-21] MEDS ORDERED: LACTATED RINGERS SOLUTION 1,000 ML IV SCH (13:45)
[2022-08-21 16:10] VITALS: RESP 20
[2022-08-21 16:29] VITALS: BP 130/78; PULSE 70; TEMP 97.4
== END 2022-08-21 16:00 | disposition home or self-care (01) ==
LOC: JASU-SURG 05:31
PROVIDERS: ATTEND Obstetrics & Gynecology
PROC: 0UB98ZZ Excision of Uterus, Via Natural or Artificial Opening Endoscopic (ICD-10-PCS; principal; 2022-08-21 12:00)
DX: N92.1 Excessive and frequent menstruation with irregular cycle (principal); N94.6 Dysmenorrhea, unspecified; N84.0 Polyp of corpus uteri
CPT/HCPCS: 81025; 88305-TC; 94760

== ENCOUNTER 2023-06-11 05:11 | Day surgery (SDC) | payer BC ==
[2023-06-04 11:18] VITALS: BMI 31.9
[2023-06-11] MEDS ORDERED: FENTANYL CITRATE/PF 50 MCG/ML VIAL ONE ×4 (13:44→15:09)
[2023-06-11] MEDS ORDERED: MIDAZOLAM HCL 2 MG/2 ML SINGLE DOSE VIAL ONE (13:44)
[2023-06-11] MEDS ORDERED: PROPOFOL 40 ML ONE (13:44)
[2023-06-11] MEDS ORDERED: KETOROLAC TROMETHAMINE 30 MG/1 ML VIAL ONE (13:45)
[2023-06-11] MEDS ORDERED: ceFAZolin SODIUM 1 GM VIAL ONE (13:45)
[2023-06-11] MEDS ORDERED: ONDANSETRON 4 MG/2 ML VIAL ONE (13:45)
[2023-06-11] MEDS ORDERED: DEXAMETHASONE SOD PHOSPHATE 4 MG/1 ML VIAL ONE (13:45)
[2023-06-11] MEDS: ceFAZolin SODIUM 1 GM VIAL IVPB ONE (13:48)
[2023-06-11] MEDS ORDERED: ONDANSETRON 4 MG/2 ML VIAL IVPUSH PRN (14:33)
[2023-06-11] MEDS ORDERED: oxyCODONE HCL 5 MG TABLET PO PRN (14:33)
[2023-06-11] MEDS ORDERED: LACTATED RINGERS SOLUTION 1,000 ML IV SCH (14:45)
[2023-06-11 15:43] VITALS: TEMP 98.2
[2023-06-11 17:15] VITALS: BP 124/70; PULSE 60; RESP 18
== END 2023-06-11 17:28 | disposition home or self-care (01) ==
LOC: JASU-SURG 05:11
PROVIDERS: ATTEND Obstetrics & Gynecology
PROC: 0U5B8ZZ Destruction of Endometrium, Via Natural or Artificial Opening Endoscopic (ICD-10-PCS; principal; 2023-06-11 12:00)
DX: N92.0 Excessive and frequent menstruation with regular cycle (principal); D25.9 Leiomyoma of uterus, unspecified
CPT/HCPCS: 81025; 88305-TC; 94760

== ENCOUNTER 2023-07-10 09:46 | Emergency (ER) | payer BC ==
[2023-07-10 10:11] VITALS: BP 107/57; PULSE 81; RESP 18; TEMP 99.1; BMI 32.2
== END 2023-07-10 10:40 | disposition home or self-care (01) ==
LOC: FER 09:46
PROC: 0H98XZZ Drainage of Buttock Skin, External Approach (ICD-10-PCS; principal; 2023-07-10)
DX: L02.31 Cutaneous abscess of buttock (principal)
CPT/HCPCS: 10060; 99284-25

== ENCOUNTER → 2024-04-25 | Day surgery (SDC) | payer BC ==
[2024-04-22 13:55] VITALS: BMI 32.4
[~2024-04-25] MED LIST: ACETAMINOPHEN 500 MG TABLET (FP) PO PRN; BUPIVACAINE HCL/PF 0.25% (2.5MG/ML) 10 ML VIAL ONE; BUPIVACAINE HCL/PF 0.75% 10 ML VIAL ONE; LIDOCAINE HCL/PF 1% SDV 5ML VIAL ONE
[2024-04-25 13:57] VITALS: BP 142/68; PULSE 70; RESP 16; TEMP 97.3
[2024-04-25] MEDS: LIDOCAINE HCL 1% PRESERVATIVE FREE - 30ML VIAL IJ ONE ×2 (14:40)
[2024-04-25] MEDS: BUPIVACAINE HCL/PF 0.75% 10 ML VIAL NR ONE ×2 (14:46)
== END | disposition home or self-care (01) ==
LOC: JASU-SURG 04:38
PROVIDERS: ATTEND Pain Medicine Pain Medicine
PROC: 3E0T33Z Introduction of Anti-inflammatory into Peripheral Nerves and Plexi, Percutaneous Approach (ICD-10-PCS; 2024-04-25)
PROC: 3E0T3BZ Introduction of Anesthetic Agent into Peripheral Nerves and Plexi, Percutaneous Approach (ICD-10-PCS; principal; 2024-04-25 15:30)
DX: M47.816 Spondylosis without myelopathy or radiculopathy, lumbar region (principal)
CPT/HCPCS: 76000-TC-FY

== ENCOUNTER 2024-05-22 07:28 | Day surgery (SDC) | payer BC ==
[2024-05-20 12:49] VITALS: BMI 32.5
[2024-05-22] MEDS ORDERED: ACETAMINOPHEN 500 MG TABLET (FP) PO PRN (09:09)
[2024-05-22] MEDS: LIDOCAINE HCL 1% PRESERVATIVE FREE - 30ML VIAL IJ ONE ×2 (11:37)
[2024-05-22] MEDS: BUPIVACAINE HCL/PF 0.75% 10 ML VIAL NR ONE ×4 (11:37→11:42)
[2024-05-22 11:58] VITALS: PULSE 72; RESP 20
[2024-05-22 12:06] VITALS: BP 115/72; TEMP 97.4
== END 2024-05-22 12:51 | disposition home or self-care (01) ==
LOC: JASU-SURG 07:28
PROVIDERS: ATTEND Pain Medicine Pain Medicine
PROC: 3E0T3BZ Introduction of Anesthetic Agent into Peripheral Nerves and Plexi, Percutaneous Approach (ICD-10-PCS; principal; 2024-05-22 12:15)
DX: M47.816 Spondylosis without myelopathy or radiculopathy, lumbar region (principal)
CPT/HCPCS: 76000-TC-FY; 81025

== ENCOUNTER 2024-06-13 06:18 | Day surgery (SDC) | payer BC ==
[2024-06-09 17:05] VITALS: BMI 32.5
[2024-06-13 06:31] VITALS: RESP 16; TEMP 97.6
[2024-06-13] MEDS ORDERED: LIDOCAINE HCL/PF 1% SDV 5ML VIAL ONE (07:27)
[2024-06-13] MEDS ORDERED: BUPIVACAINE HCL/PF 0.75% 10 ML VIAL ONE (07:27)
[2024-06-13] MEDS ORDERED: LIDOCAINE HCL/PF 2% SDV 5ML VIAL ONE (07:27)
[2024-06-13] MEDS ORDERED: DEXAMETHASONE SOD PHOSPHATE 10 MG/1 ML VIAL ONE (07:28)
[2024-06-13] MEDS: LIDOCAINE HCL 1% PRESERVATIVE FREE - 30ML VIAL IJ ONE ×3 (08:33)
[2024-06-13] MEDS: LIDOCAINE HCL/PF 2% SDV 5ML VIAL INF ONE ×2 (08:33)
[2024-06-13] MEDS: DEXAMETHASONE SOD PHOSPHATE 10 MG/1 ML VIAL IVPUSH ONE ×2 (08:53)
[2024-06-13] MEDS: BUPIVACAINE HCL/PF 0.75% 10 ML VIAL NR ONE ×3 (08:53)
[2024-06-13 09:14] VITALS: BP 134/84; PULSE 66
[2024-06-13] MEDS ORDERED: ACETAMINOPHEN 500 MG TABLET (FP) PO PRN (21:34)
== END 2024-06-13 09:34 | disposition home or self-care (01) ==
LOC: JASU-SURG 06:18
PROVIDERS: ATTEND Pain Medicine Pain Medicine
PROC: 015B3ZZ Destruction of Lumbar Nerve, Percutaneous Approach (ICD-10-PCS; principal; 2024-06-13 08:00)
DX: M47.816 Spondylosis without myelopathy or radiculopathy, lumbar region (principal)
CPT/HCPCS: 76000-TC-FY; 81025; J1100